=== PATIENT | female | born 1955 | race Caucasian/White ===

== ENCOUNTER 2022-05-09 12:37 | Emergency (ER) | payer MEDICARE ==
[~2022-05-09] VITALS: Ht 157.5 cm; Wt 80.0 kg
[~2022-05-09 12:37] MED LIST: ACET-3163 PO; ATOR40TA70 MT; CHLO25TA2 MT; FAMO20TA8 PO; LEVO-65 MT; LORA10TA7 MT
[2022-05-09 12:51] VITALS: BP 133/74
[2022-05-09 18:25] LABS: BASOPHILS % 0.4 % (0.0-2.0); HEMATOCRIT. 38.3 % (36.0-48.0); HEMOGLOBIN. 12.9 g/dL (12.0-16.0); LYMPHOCYTES % 26.2 % (20.0-50.0); MEAN CORPUSCULAR HEMOGLOBIN 28.6 pg (28.0-32.0); MEAN PLATELET VOLUME 9.1 fl (7.4-10.4); MONOCYTES % 9.2 % (2.0-8.0); NEUTROPHILS % 64.2 % (40.0-76.0); PLATELET 280 x1000/uL (130-400); RED BLOOD CELL COUNT 4.51 mill/uL (4.2-5.4); RED CELL DISTRIBUTION WIDTH 14.1 % (11.6-14.6)
[2022-05-09 18:31] LABS: CHLORIDE 100 mEq/L (98-107)
[2022-05-09] MEDS ORDERED: BENZ200C52 MT (19:10)
== END 2022-05-09 20:08 | disposition home or self-care (01) ==
LOC: ER 13:23
DX: R05.9 Cough, unspecified (principal); R07.89 Other chest pain; E11.9 Type 2 diabetes mellitus without complications; I10 Essential (primary) hypertension; Z90.710 Acquired absence of both cervix and uterus; Z79.899 Other long term (current) drug therapy; Z20.822 Contact with and (suspected) exposure to COVID-19
CPT/HCPCS: 36415; 71045; 80053; 83880; 84484; 85025; 87426; 87804; 93005; 99285; C9803